=== PATIENT | female | born 1965 | race Caucasian/White ===

== ENCOUNTER 2016-07-22 18:27 | Emergency (ER) | payer BC ==
[~2016-07-22] VITALS: Ht 167.6 cm; Wt 70.3 kg
[2016-07-22] MEDS ORDERED: IV NORMAL SALINE 1,000ML 1,000 ML IV SCH (19:30)
[2016-07-22] MEDS ORDERED: ONDANSETRON PF 4 MG/2 ML VIAL. IV ONE (19:30)
[2016-07-22] MEDS ORDERED: methylPREDNISolone SOD SUCC PF 125 MG/2 ML VIAL. IV ONE (19:30)
[2016-07-22 19:45] LABS: BILIRUBIN,URINE NEG (NEG); CLARITY,URINE CLOUDY; COLOR,URINE ORANGE
[2016-07-22 19:46] LABS: AMORPHOUS SEDIMENT,UR PRESENT /HPF; BACTERIA,URINE 0 /HPF (0-FEW); RBC,URINE 0 /HPF (0-2); SQUAMOUS EPITHELIAL CELL,UR OCC /LPF
[2016-07-22 20:03] LABS: BASO # 0.1 x10^3/uL (0.0-0.2); BASO % 1 % (0-3); EOS % 0 % (0-3); HEMATOCRIT 37.9 % (36.0-47.0); HEMOGLOBIN 13.3 g/dL (12.0-15.5); LYMPH # 1.7 x10^3/uL (1.0-4.8); LYMPH % 18 % (24-48); MEAN CORPUSCULAR HEMOGLOBIN 33 pg (25-35); MEAN CORPUSCULAR HGB CONC 35 g/dL (31-37); MEAN CORPUSCULAR VOLUME 95 fL (79-100); MONO # 0.6 x10^3/uL (0.0-1.1); MONO % 6 % (0-9); NEUT # 7.1 x10^3uL (1.8-7.7); NEUT % 74 % (31-73); PLATELET COUNT 265 x10^3/uL (140-400); RED BLOOD COUNT 3.98 x10^6/uL (3.50-5.40); RED CELL DISTRIBUTION WIDTH 12.6 % (11.5-14.5); WHITE BLOOD COUNT 9.6 x10^3/uL (4.0-11.0)
[2016-07-22 20:18] LABS: AMPHETAMINE/METHAMPHETAMINE NEG (NEG); BARBITURATES NEG (NEG); BENZODIAZEPINES NEG (NEG); CANNABINOIDS NEG (NEG); COCAINE NEG (NEG); METHADONE NEG (NEG); OPIATES NEG (NEG); PHENCYCLIDINE NEG (NEG)
[2016-07-22 20:22] LABS: ALBUMIN 4.5 g/dL (3.4-5.0); ALBUMIN/GLOBULIN RATIO 1.3 (1.0-1.7); CALCIUM 9.8 mg/dL (8.5-10.1); GFR 23.3
--- NOTE | 2016-07-22 20:28 | RAD ---
PQRS STATEMENT: One or more of the following in the visualized dose reduction techniques were utilized for this study: 1. Automatic exposure control, 2. Adjustment of the mA and/or kV according to patient size, 3. Use of iterative reconstruction technique CT ABDOMEN/PELVIS Indication:CT abdomen/pelvis without contrast, allergy to iodine, pt has severe low abdominal pain, interstitial cystitis, hx of kidney stones and previous laser surgery on bladder 10 years ago for interstitial cystitis Technique: Multiple contiguous axial images were obtained through the abdomen and pelvis. Coronal and sagittal reformations were created. Findings: The kidneys are normal in size. There is no evidence for hydronephrosis. There is nonobstructive bilateral nephrolithiasis. The largest stone is on the left and measures 2 mm in size. There is a 0.6 cm fat density lesion in the interpolar region of the right kidney which probably represents a small angiomyolipoma. Ureters are not dilated. The urinary bladder is unremarkable. The heart size is normal. The lung bases are clear.Evaluation of the abdominal viscera is limited in the absence of IV contrast. The liver and spleen are normal in size. The gallbladder is nondistended. The pancreas, and adrenal glands are within normal limits. There is no abdominopelvic ascites. Abdominal aorta is normal in caliber. .The bowel loops are normal in caliber. The appendix is normal.No destructive osseus lesions are identified. Impression: Nonobstructive bilateral nephrolithiasis. No ascites or inflammatory mass. Normal appendix. 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 Electronically signed by: Danilo Maldonado MD (07/22/2016 8:24 PM)
[2016-07-22 20:43] LABS: CREATININE 2.2 mg/dL (0.6-1.0)
[2016-07-22 20:45] LABS: POTASSIUM 2.5 mmol/L (3.5-5.1)
[2016-07-22] MEDS ORDERED: POTASSIUM CHLORIDE 20 MEQ TABLET.ER. PO ONE (21:00)
--- NOTE | 2016-07-22 21:45 | PHYS DOC ---
General Chief Complaint: ABDOMINAL PAIN Stated Complaint: ABDOM PAINS Time Seen by MD: 18:45 Source: patient Exam Limitations: no limitations Problems: History of Present Illness Initial Comments Patient is a 51-year-old female who comes private auto complaining of lower abdominal pain. Patient states she has history of interstitial cystitis and that she has a recurrence. She is to follow with specialty urology at however has not been seen there for 10 years. She has an appointment scheduled for August 30 but thinks it is excessive she has to wait until that time. Patient has no primary care physician even though she does have health insurance, she says she works too much and has to take care of her kids and doesn't have time to go to doctors. She's been to urgent care and emergency departments recently for this discomfort, she says she is on her third round of antibiotics currently taking Bactrim and Pyridium. She says she hasn't been bothered with this discomfort in approximately 10 years but says it is identical to prior interstitial cystitis symptoms only worse. She says the pain is burning and stabbing moderate to severe worse with urination. Her urine is colored red due to Pyridium she is uncertain whether she 's had any blood, she denies fever chills sweats or myalgias she denies nausea vomiting and diarrhea. She has no bowel or vaginal symptoms. She does admit to decreased by mouth intake as she's been very frustrated with her pain complaints. Patient is tearful and requesting that I obtain cystoscopy in the ED and diagnosed her with interstitial cystitis. I advised her that cystoscopy will not take place in the emergency department but we can check labs urine and CT evaluation patient is agreeable. She refuses narcotic pain medications. Timing/Duration: constant (4-6 weeks) Severity: severe Modifying Factors: improves with other Associated Symptoms: other Allergies: Coded Allergies: iodine (Verified Allergy, Severe, Anaphylaxis, 07/22/16) shellfish derived (Verified Allergy, Severe, Anaphylaxis, 07/22/16) Penicillins (Verified Allergy, Intermediate, 07/22/16) aspirin (Verified Allergy, Intermediate, 07/22/16) Past Medical History Medical History: other (hypothyroidism, kidney stones, autoimmune idiopathic hives) Surgical History: noncontributory Social History Smoker: non-smoker Alcohol: occasionally Drugs: none Review of Systems Constitutional: denies chills, denies diaphoresis, denies fever, malaise Respiratory: denies cough, denies shortness of breath, denies wheezing Cardiovascular: denies chest pain, denies palpitations, denies syncope Gastrointestinal: abdominal pain, denies constipation, denies diarrhea, denies nausea, denies vomiting Genitourinary: see HPI Musculoskeletal: denies back pain, denies joint swelling, denies neck pain Psychiatric/Neurological: denies headache, denies numbness, denies paresthesia Physical Exam General Appearance: WD/WN, moderate distress Eyes: bilateral eye normal inspection, bilateral eye PERRL, bilateral eye EOMI Ear, Nose, Throat: hearing grossly normal, normal ENT inspection, normal pharynx (dry mucous membranes) Neck: non-tender, supple Respiratory: normal breath sounds, no respiratory distress Cardiovascular: normal peripheral pulses, regular rate, rhythm Gastrointestinal: soft (nondistended, lower abdominal tenderness to palpation without rebound or guard negative Joy no masses noted bowel sounds diminished ) Back: no CVA tenderness, no vertebral tenderness Extremities: non-tender, normal inspection 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 Interpreted by me Pertinent labs: Potassium 2.5, BUN 29, creatinine 2.2, creatine kinase 221, urine drug screen negative, urinalysis unreliable due to Pyridium PATIENT: XUAN LEES ACCOUNT: [id number] : 1965 LOCATION: ER AGE: 51 SEX: F EXAM STATUS: REG ER ORD. PHYSICIAN: LARRY ESPINOSA DO REASON: low abdominal pain, h/o interstitial cystitis,h/okidney stones PROCEDURE: CT ABDOMEN PELVIS WO CONTRAST PQRS STATEMENT: One or more of the following in the visualized dose reduction techniques were utilized for this study: 1. Automatic exposure control, 2. Adjustment of the mA and/or kV according to patient size, 3. Use of iterative reconstruction technique CT ABDOMEN/PELVIS Indication:CT abdomen/pelvis without contrast, allergy to iodine, pt has severe low abdominal pain, interstitial cystitis, hx of kidney stones and previous laser surgery on bladder 10 years ago for interstitial cystitis Technique: Multiple contiguous axial images were obtained through the abdomen and pelvis. Coronal and sagittal reformations were created. Findings: The kidneys are normal in size. There is no evidence for hydronephrosis. There is nonobstructive bilateral nephrolithiasis. The largest stone is on the left and measures 2 mm in size. There is a 0.6 cm fat density lesion in the interpolar region of the right kidney which probably represents a small angiomyolipoma. Ureters are not dilated. The urinary bladder is unremarkable. The heart size is normal. The lung bases are clear.Evaluation of the abdominal viscera is limited in the absence of IV contrast. The liver and spleen are normal in size. The gallbladder is nondistended. The pancreas, and adrenal glands are within normal limits. There is no abdominopelvic ascites. Abdominal aorta is normal in caliber. .The bowel loops are normal in caliber. The appendix is normal.No destructive osseus lesions are identified. Impression: Nonobstructive bilateral nephrolithiasis. No ascites or inflammatory mass. Normal appendix. 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 Electronically signed by: Iva Maldonado MD (07/22/2016 8:24 PM) DICTATED AND SIGNED BY: IVA MALDONADO MD DATE: 07/22/162016 CC: LARRY ESPINOSA DO; MADDIE DURAN ~ Patient received a liter normal saline IV while her studies were pending. She reports that her symptoms have nearly resolved with IV fluids and Solu-Medrol IV. I discussed her hypokalemia and renal insufficiency and discussed hospital admission for further evaluation and treatment. After comprehensive discussion and answering patient's questions she requests trial of medications at home and agrees to come back if symptoms return or worsen. I strongly encouraged her to establish with a primary care physician for ongoing health maintenance and to manage her outpatient referrals. Departure Time of Disposition: 21:48 Disposition: 01 HOME, SELF-CARE Diagnosis: hypokalemia, hypovolemia, interstitial cystitis Condition: IMPROVED Patient Instructions: Dehydration, Adult, [id number], Hypokalemia-Brief, Interstitial Cystitis Additional Instructions: Activity as tolerated. Aggressive hydration with Gatorade or water. [id number] Benadryl and Pepcid while taking prednisone. Prescription: Klor-Con 40 mg quantity 10, prednisone 20 mg quantity 10, Centralia 5 mg quantity 10 Take Centralia with food to avoid nausea and vomiting. Increase fluids and take over -the-counter stool softeners while taking Centralia to avoid constipation. You'll need to follow-up with a primary care physician next week to recheck your potassium and kidney function. Call Sunday to schedule next available appointment and see if you can expedite urology evaluation at . Return to the ED with new or changing symptoms LARRY ESPINOSA DO Jul 22, 2016 21:45
[2016-07-22 22:00] VITALS: BP 124/76
--- NOTE | 2016-07-22 22:05 | EKG ---
[address] [address] Test Date: 2016-07-22 Test Time: 21:16:49 Pat Name: XUAN LEES Department: Room: Gender: F Residential Nurse: BETH : 1965 Requested By: LARRY ESPINOSA Order Number: [id number] Reading MD: Shay Sotelo Measurements Intervals [place] Rate: 70 P: 60 [place]: 168 QRS: 24 QRSD: 90 T: 20 QT: 482 QTc: 524 Interpretive Statements SINUS RHYTHM NON-SPECIFIC ST/T CHANGES Electronically Signed On 07-25-2016 8:42:29 CDT by Shay Sotelo
[2016-07-22] MEDS ORDERED: predniSONE 20 MG TABLET PO ONE (22:30)
[2016-07-27] MEDS ORDERED: ASCO500T2 PO (13:17)
[2016-07-27] MEDS ORDERED: POTA10CA PO (13:17)
== END 2016-07-22 22:15 | disposition home or self-care (01) ==
LOC: ER 18:27
DX: N30.10 Interstitial cystitis (chronic) without hematuria (principal); E86.1 Hypovolemia; E87.6 Hypokalemia; E03.9 Hypothyroidism, unspecified; Z87.442 Personal history of urinary calculi; Z88.6 Allergy status to analgesic agent; Z91.041 Radiographic dye allergy status; Z88.0 Allergy status to penicillin; Z91.013 Allergy to seafood
CPT/HCPCS: 36415; 74176; 80053; 80305; 80320; 81001; 82550; 83690; 85027; 87086; 93005; 96361; 96374; 96375; 99285; J2405; J2930; J7512; G0481; J7030

== ENCOUNTER 2016-07-26 13:31 | Inpatient (IN) | payer BC ==
[~2016-07-26] VITALS: Ht 162.6 cm; Wt 75.7 kg
--- NOTE | 2016-07-26 14:26 | EKG ---
[address] [address] Test Date: 2016-07-26 Test Time: 13:54:55 Pat Name: XUAN LEES Department: Room: Gender: F Director Of Security: SHANE : 1965 Requested By: DEB NAVARRO Order Number: [id number] Reading MD: Shay Sotelo Measurements Intervals [place] Rate: 73 P: 37 [place]: 148 QRS: 16 QRSD: 86 T: 15 QT: 404 QTc: 449 Interpretive Statements SINUS RHYTHM ATRIAL PREMATURE COMPLEX(ES) Electronically Signed On 07-27-2016 11:09:59 CDT by Shay Sotelo
[2016-07-26] MEDS ORDERED: methylPREDNISolone SOD SUCC PF 125 MG/2 ML VIAL. IV ONE (14:30)
[2016-07-26] MEDS ORDERED: diphenhydrAMINE 50 MG/ML VIAL IVP ONE (14:30)
[2016-07-26 14:43] LABS: BASO % 0 % (0-3); EOS % 0 % (0-3); HEMATOCRIT 35.7 % (36.0-47.0); HEMOGLOBIN 12.4 g/dL (12.0-15.5); LYMPH # 1.4 x10^3/uL (1.0-4.8); LYMPH % 10 % (24-48); MEAN CORPUSCULAR HEMOGLOBIN 33 pg (25-35); MEAN CORPUSCULAR HGB CONC 35 g/dL (31-37); MEAN CORPUSCULAR VOLUME 96 fL (79-100); MONO # 0.3 x10^3/uL (0.0-1.1); MONO % 3 % (0-9); NEUT # 11.3 x10^3uL (1.8-7.7); NEUT % 87 % (31-73); PLATELET COUNT 322 x10^3/uL (140-400); RED BLOOD COUNT 3.71 x10^6/uL (3.50-5.40); RED CELL DISTRIBUTION WIDTH 12.8 % (11.5-14.5)
--- NOTE | 2016-07-26 14:47 | ED.ADGEN ---
Past History Past Medical History: Hypothyroid, Other Past Surgical History: Other Alcohol Use: Occasionally Drug Use: None Adult General Chief Complaint Chief Complaint Low oxygen level HPI HPI Patient is a 51 year old female who presents with low oxygen levels discovered at the family [facility] office while on a routine checkup for interstitial cystitis she's been recently taking Pyridium. They noted that her O2 sats were around 86% on room air. Patient currently denies any chest pain or dyspnea but does report fatigue. Also had a left calf pain and cramping earlier this morning that's resolved. No prior history of DVTs or pulmonary malaise. She does take xolair monthly for her interstitial cystitis. Review of Systems Review of Systems Constitutional: Denies fever or chills [] Eyes: Denies change in visual acuity, redness, or eye pain [] HENT: Denies nasal congestion or sore throat [] Respiratory: Denies cough or shortness of breath [] Cardiovascular: No additional information not addressed in HPI [] GI: Denies abdominal pain, nausea, vomiting, bloody stools or diarrhea [] : Denies dysuria or hematuria [] Musculoskeletal: Denies back pain or joint pain [] Integument: Denies rash or skin lesions [] Neurologic: Denies headache, focal weakness or sensory changes [] Endocrine: Denies polyuria or polydipsia [] Current Medications Current Medications Current Medications Medications (Trade) Dose Ordered Sig/Wan Start Time Stop Time Status Last Admin Dose Admin Diphenhydramine HCl (Benadryl) 50 mg 1X ONCE 07/26/16 14:30 07/26/16 14:31 DC 07/26/16 14:27 50 MG Iohexol (Omnipaque 300 Mg/ml) 75 ml 1X ONCE 07/26/16 15:00 07/26/16 15:01 DC 07/26/16 15:17 75 ML Methylprednisolone Sodium Succinate (SOLU-Medrol 125MG VIAL) 125 mg 1X ONCE 07/26/16 14:30 07/26/16 14:31 DC 07/26/16 14:27 125 MG Allergies Allergies Allergies Coded Allergies Type Severity Reaction Last Updated Verified shellfish derived Allergy Severe Anaphylaxis 07/22/16 Yes Penicillins Allergy Intermediate 07/22/16 Yes aspirin Allergy Intermediate 07/22/16 Yes Physical Exam Physical Exam Constitutional: Well developed, well nourished, no acute distress, non-toxic appearance. [] HENT: Normocephalic, atraumatic, bilateral external ears normal, oropharynx moist, no oral exudates, nose normal. [] Eyes: PERRLA, EOMI, conjunctiva normal, no discharge. [] Neck: Normal range of motion, no tenderness, supple, no stridor. [] Cardiovascular:Heart rate regular rhythm, no murmur [] Lungs & Thorax: Bilateral breath sounds clear to auscultation [] Abdomen: Bowel sounds normal, soft, no tenderness, no masses, no pulsatile masses. [] Skin: Warm, dry, no erythema, no rash. [] Back: No tenderness, no CVA tenderness. [] Extremities: No tenderness, no cyanosis, no clubbing, ROM intact, no edema. [] Neurologic: Alert and oriented X 3, normal motor function, normal sensory function, no focal deficits noted. [] Psychologic: Affect normal, judgement normal, mood normal. [] Current Patient Data Vital Signs Vital Signs Date Time Temp Pulse Resp B/P (MAP) Pulse Ox O2 Delivery O2 Flow Rate FiO2 07/26/16 13:31 98.7 76 20 87 Room Air Lab Results Laboratory Tests Test 07/26/16 14:12 07/26/16 14:20 White Blood Count 13.0 x10^3/uL (4.0-11.0) H Red Blood Count 3.71 x10^6/uL (3.50-5.40) Hemoglobin 12.4 g/dL (12.0-15.5) Hematocrit 35.7 % (36.0-47.0) L Mean Corpuscular Volume 96 fL (79-100) Mean Corpuscular Hemoglobin 33 pg (25-35) Mean Corpuscular Hemoglobin Concent 35 g/dL (31-37) Red Cell Distribution Width 12.8 % (11.5-14.5) Platelet Count 322 x10^3/uL (140-400) Neutrophils (%) (Auto) 87 % (31-73) H Lymphocytes (%) (Auto) 10 % (24-48) L Monocytes (%) (Auto) 3 % (0-9) Eosinophils (%) (Auto) 0 % (0-3) Basophils (%) (Auto) 0 % (0-3) Neutrophils # (Auto) 11.3 x10^3uL (1.8-7.7) H Lymphocytes # (Auto) 1.4 x10^3/uL (1.0-4.8) Monocytes # (Auto) 0.3 x10^3/uL (0.0-1.1) Eosinophils # (Auto) 0.0 x10^3/uL (0.0-0.7) Basophils # (Auto) 0.0 x10^3/uL (0.0-0.2) Sodium Level 137 mmol/L (136-145) Potassium Level 3.1 mmol/L (3.5-5.1) L Chloride Level 99 mmol/L (98-107) Carbon Dioxide Level 30 mmol/L (21-32) Anion Gap 8 (6-14) Blood Urea Nitrogen 34 mg/dL (7-20) H Creatinine 1.3 mg/dL (0.6-1.0) H Estimated GFR (Cockcroft-Gault) 42.8 BUN/Creatinine Ratio 26 (6-20) H Glucose Level 137 mg/dL (70-99) H Calcium Level 9.1 mg/dL (8.5-10.1) Total Bilirubin 1.9 mg/dL (0.2-1.0) H Aspartate Amino Transferase (AST) 31 U/L (15-37) Alanine Aminotransferase (ALT) 34 U/L (14-59) Alkaline Phosphatase 93 U/L (46-116) Troponin I Quantitative < 0.017 ng/mL (0-0.055) Total Protein 7.7 g/dL (6.4-8.2) Albumin 4.7 g/dL (3.4-5.0) Albumin/Globulin Ratio 1.6 (1.0-1.7) Blood pH 7.50 (7.35-7.45) H Blood Gas PCO2 34 mmHg (35-45) L Blood Gas PO2 68 mmHg (80-100) L Blood Gas HCO3 26 mmol/L (22-26) Arterial Bld O2 Saturation (Calc) 95 % (92-99) Carbon Monoxide, Quantitative 3.7 FiO2 21 % EKG EKG EKG sinus rhythm rate of 73 no STEMI QTC normal no heart strain there is Q3 slight T3 no S1 [] interpretation at 1354 Radiology/Procedures Radiology/Procedures CTA chest [negative for pulmonary embolism] Course & Med Decision Making Course & Med Decision Making Pertinent Labs and Imaging studies reviewed. (See chart for details). Patient is in no distress not tachycardic but noted to be hypoxic. chest x-ray done as an outpatient is reportedly normal ABG was obtained which showed hypoxia relatively patient was on 4 L by nasal cannula. carboxyhemoglobin and methemoglobin are pending and are send outs. Patient has a shellfish allergy but no prior history of adverse reactions to IV contrast this was discussed in detail with the patient and the patient's father who agreed and with the radiologist. Regardless we will pretreat just as an extra precaution although was not absolutely necessary with Solu-Medrol and Benadryl. Benefits outweigh the risks. CT of the chest showed no evidence of pulmonary embolism. Carboxyhemoglobin was 3% met hemoglobin was 9.4 which is grossly abnormal. Discussed case with poison control they recommend a repeat CBC CMP and methemoglobin level checked at 9 PM tonight and in the morning. They recommend regular dose of vitamin C and continuation of oxygen and stopping of Pyridium. I discussed the diagnosis and management plan with Dr. Gonzalez agrees to accept that and I have discussed in detail with the patient as well. [] Final Impression Final Impression Hypoxia, methemoglobinemia [] Problems: Dragon Disclaimer Dragon Disclaimer This electronic medical record was generated, in whole or in part, using a voice recognition dictation system. DEB NAVARRO MD Jul 26, 2016 14:47
[2016-07-26 14:54] LABS: ALBUMIN 4.7 g/dL (3.4-5.0); ALBUMIN/GLOBULIN RATIO 1.6 (1.0-1.7); CALCIUM 9.1 mg/dL (8.5-10.1); CREATININE 1.3 mg/dL (0.6-1.0); GFR 42.8; POTASSIUM 3.1 mmol/L (3.5-5.1); TOTAL BILIRUBIN 1.9 mg/dL (0.2-1.0); TOTAL PROTEIN 7.7 g/dL (6.4-8.2)
[2016-07-26] MEDS ORDERED: IOHEXOL 300 MG/ML 75 ML VIAL. IV ONE (15:00)
[2016-07-26 15:04] LABS: BGAS PH 7.5 (7.35-7.45)
--- NOTE | 2016-07-26 15:39 | RAD ---
CTA of the chest with contrast (pulmonary embolism protocol) 07/26/2016 Clinical History: Hypoxia.. Technique: After the intravenous administration of 75 mL of Isovue-370, contiguous, 2 mm axial sections were obtained through the chest. 3-D MIP coronal and sagittal reconstructed images were obtained. One or more of the following individualized dose reduction techniques were utilized for this study: 1. Automated exposure control. 2. Adjustment of the mA and/or kV according to patient size. 3. Use of iterative reconstruction technique. Findings: No filling defects are seen within the major branches of either pulmonary artery. There is no CT evidence of pulmonary embolism. The heart is borderline enlarged. The thoracic aorta is mildly tortuous but tapers normally. Dependent subsegmental atelectasis seen involving both lungs. No area of consolidation, pneumothorax or pleural effusion is noted. Impression: There is no CT evidence of pulmonary embolism.
[2016-07-26] MEDS ORDERED: ONDANSETRON PF 4 MG/2 ML VIAL. IV PRN (17:45)
[2016-07-26] MEDS ORDERED: CONTRAST GIVEN MC PRN (18:00)
[2016-07-26] MEDS ORDERED: IV NORMAL SALINE 1,000ML 1,000 ML IV PRN (18:00)
[2016-07-26 18:41] LABS: BILIRUBIN,URINE NEG (NEG); CLARITY,URINE CLEAR; COLOR,URINE AMBER; GLUCOSE,URINE 100 mg/dL (NEG)
[2016-07-26 18:47] LABS: BACTERIA,URINE 0 /HPF (0-FEW); NITRITE,URINE POS (NEG); RBC,URINE RARE /HPF (0-2); SQUAMOUS EPITHELIAL CELL,UR FEW /LPF; UROBILINOGEN,URINE 0.2 mg/dL (0.2 mg/dL)
[2016-07-26] MEDS ORDERED: ENOXAPARIN 40 MG/0.4 ML DISP.SYRIN. SQ SCH (19:00)
[2016-07-26] MEDS: ASCORBIC ACID 500 MG TABLET PO SCH (20:56)
[2016-07-26 21:16] LABS: BASO % 0 % (0-3); EOS % 0 % (0-3); HEMATOCRIT 36.4 % (36.0-47.0); HEMOGLOBIN 12.6 g/dL (12.0-15.5); LYMPH # 0.8 x10^3/uL (1.0-4.8); LYMPH % 8 % (24-48); MEAN CORPUSCULAR HEMOGLOBIN 33 pg (25-35); MEAN CORPUSCULAR HGB CONC 35 g/dL (31-37); MEAN CORPUSCULAR VOLUME 96 fL (79-100); MONO # 0.1 x10^3/uL (0.0-1.1); MONO % 1 % (0-9); NEUT % 90 % (31-73); PLATELET COUNT 331 x10^3/uL (140-400); RED BLOOD COUNT 3.79 x10^6/uL (3.50-5.40); RED CELL DISTRIBUTION WIDTH 12.9 % (11.5-14.5)
[2016-07-26 21:24] LABS: BGAS PH 7.46 (7.35-7.45)
[2016-07-26 21:36] LABS: ALBUMIN 4.3 g/dL (3.4-5.0); ALBUMIN/GLOBULIN RATIO 1.3 (1.0-1.7); CALCIUM 8.7 mg/dL (8.5-10.1); CREATININE 1.2 mg/dL (0.6-1.0); TOTAL PROTEIN 7.7 g/dL (6.4-8.2)
[2016-07-26 21:37] LABS: POTASSIUM 2.9 mmol/L (3.5-5.1)
[2016-07-26] MEDS ORDERED: POTASSIUM CHLORIDE 20 MEQ TABLET.ER. PO ONE (21:55)
[2016-07-26] MEDS: POTASSIUM CL 20MEQ IN 0.9%NACL 1,000 ML IV SCH (22:03)
[2016-07-26 23:35] VITALS: BP 103/62
[2016-07-27 05:00] VITALS: BP 126/70
[2016-07-27] MEDS ORDERED: POTASSIUM CHLORIDE 20 MEQ TABLET.ER. PO ONE ×3 (06:00→12:00)
[2016-07-27 06:28] LABS: BASO % 0 % (0-3); EOS % 0 % (0-3); HEMATOCRIT 34.1 % (36.0-47.0); HEMOGLOBIN 11.8 g/dL (12.0-15.5); LYMPH % 9 % (24-48); MEAN CORPUSCULAR HEMOGLOBIN 34 pg (25-35); MEAN CORPUSCULAR HGB CONC 35 g/dL (31-37); MEAN CORPUSCULAR VOLUME 97 fL (79-100); MONO # 0.3 x10^3/uL (0.0-1.1); MONO % 3 % (0-9); NEUT # 9.8 x10^3uL (1.8-7.7); NEUT % 88 % (31-73); PLATELET COUNT 325 x10^3/uL (140-400); RED BLOOD COUNT 3.52 x10^6/uL (3.50-5.40); RED CELL DISTRIBUTION WIDTH 13.5 % (11.5-14.5); WHITE BLOOD COUNT 11.1 x10^3/uL (4.0-11.0)
[2016-07-27 06:42] LABS: ALBUMIN/GLOBULIN RATIO 1.2 (1.0-1.7); CALCIUM 8.4 mg/dL (8.5-10.1); CREATININE 1.1 mg/dL (0.6-1.0); POTASSIUM 3.1 mmol/L (3.5-5.1); TOTAL BILIRUBIN 1.6 mg/dL (0.2-1.0); TOTAL PROTEIN 7.4 g/dL (6.4-8.2)
--- NOTE | 2016-07-27 06:43 | ACF ---
Admission Criteria Forms TELEMETRY CARE Telemetry Admission Guidelines (Place 'X' for any and all applicable criteria): Admission to telemetry [A] may be indicated for ANY ONE of the following(1)(2)(3 )(4)(5): [X]I. Cardiac disease, including ANY ONE of the following (9)(10)(11)(12)(13 ): [ ]a) Postacute SD [ ]b) Low-risk patients with ST-segment elevation SD who have undergone successful percutaneous coronary intervention [ ]c) Unstable angina [ ]d) Suspected SD (until it is ruled out) [ ]e) Post cardiac surgery (first 48 to 72 hours unless complications occur) [X]f) Acute arrhythmias (including significant tachycardia or bradycardia) [B] [ ]g) Firing of an implantable cardioverter defibrillator [C] [ ]h) Suspected pacemaker or implantable cardioverter defibrillator malfunction (10) [ ]i) New administration or adjustment of an antiarrhythmic drug [D ] [ ]j) Child admitted for acute congestive heart failure [ ]j) Long QT syndrome [ ]k) Advanced heart block (eg, second-degree Mobitz type II, third- degree heart block) [ ]l) Acute myocarditis or pericarditis [ ]m) Short-term (ambulatory or inpatient) monitoring after a cardiac procedure as indicated by ANY ONE of the following [E]: [ ]i) Electrophysiologic studies [ ]ii) Percutaneous coronary intervention with stent placement [ ]iii) Pacemaker placement with cardiac conduction defect [ ]iv) Implantable cardiac defibrillator placement [ ]II. Drug overdose or poisoning with substance that causes arrhythmias or QT prolongation (eg, phenothiazines, sympathomimetic agents, cyclic antidepressants, digitalis, antiarrhythmic drugs)(15) [ ]III. Short-term (ambulatory or inpatient) monitoring after therapeutic or diagnostic procedure requiring conscious sedation or anesthesia (eg, endoscopy, elective cardioversion) [ ]IV. Acute cerebrovascular even[F](18) [ ]V. Massive blood transfusion (eg, at least 10 units of packed red blood cells in 24 hours) [ ]. Variceal bleeding after endoscopy, sclerotherapy, or IV vasopressin [ ]VII. Uncorrected electrolyte abnormalities associated with an increased risk of dangerous arrhythmia [G]; examples include [ ]a) Hyperkalemia with attributable ECG changes [ ]b) Potassium greater than 6.5 mmol/L (mEq/L) in a patient without history of chronic renal disease [ ]c) Prolonged QT attributed to hypokalemia, hypomagnesemia, or hypocalcemia [ ]VIII.Unexplained syncope or other neurologic event suspected of being due to arrhythmia due to a finding that increases risk; examples include(19)(20)(21): [ ]a) High-risk ECG findings (eg, bifascicular block, bradycardia, abnormal QT interval, ventricular pre- excitation) [ ]b) History of previous syncope due to arrhythmia [ ]c) Abnormal ventricular function (eg, reduced ejection fraction ) [ ]d) Exertional or supine syncope [ ]e) Concerning syncope characteristics (eg, sudden loss of consciousness without prodrome) [ ]f) Family history of sudden [ ]g) Use of arrhythmogenic medication [ ]h) Suspected cardiac ischemia [ ]i) Known channelopathy (eg, long QT syndrome, Brugada syndrome, or catecholaminergic paroxysmal ventricular tachycardia) [ ]j) Known structural heart disease (eg, hypertrophic cardiomyopathy , severe valvular disease) [ ]k) Palpitations preceding syncope The original [facility] content created by [employer] has been revised. The portions of the content which have been revised are identified through the use of italic text or in bold, and [employer] has neither reviewed nor approved the modified material. All other unmodified content is copyright [employer]. Please see references footnoted in the original [facility] edition 2016 Admission Criteria Met?: Yes GENEVIEVE MOREJON Jul 27, 2016 06:43
[2016-07-27] MEDS: ASCORBIC ACID 500 MG TABLET PO SCH (08:56)
[2016-07-27] MEDS: POTASSIUM CL 20MEQ IN 0.9%NACL 1,000 ML IV SCH (08:57)
[2016-07-27 10:58] LABS: BGAS PH 7.48 (7.35-7.45)
[2016-07-27 11:53] VITALS: BP 111/73
[2016-07-27] MEDS ORDERED: ASCO500T2 PO (13:17)
[2016-07-27] MEDS ORDERED: POTA10CA PO (13:17)
[2016-07-27 14:31] LABS: HEMATOCRIT 33.1 % (36.0-47.0); HEMOGLOBIN 11.5 g/dL (12.0-15.5); RED BLOOD COUNT 3.4 x10^6/uL (3.50-5.40); RED CELL DISTRIBUTION WIDTH 13.5 % (11.5-14.5); WHITE BLOOD COUNT 15.2 x10^3/uL (4.0-11.0)
[2016-07-27 14:42] LABS: CALCIUM 8.6 mg/dL (8.5-10.1); CREATININE 1.1 mg/dL (0.6-1.0)
[2016-07-27 16:06] VITALS: BP 113/74
[2016-07-27 16:20] LABS: BGAS PH 7.47 (7.35-7.45)
[2016-07-27] MEDS ORDERED: POTASSIUM CHLORIDE 10 MEQ CAPSULE.ER. PO SCH (17:00)
== END 2016-07-27 18:16 | disposition home or self-care (01) | DRG 690 ==
LOC: ER 13:31 → 1 SOUTH 17:34 → OBSVTOIN 07-27 08:53
PROVIDERS: ADMIT Family Medicine; ATTEND Family Medicine
DX: N30.10 Interstitial cystitis (chronic) without hematuria (principal); E03.9 Hypothyroidism, unspecified; R09.02 Hypoxemia
CPT/HCPCS: 36415; 36600; 71275; 80048; 80053; 81001; 82375; 82803; 84484; 85027; 85379; 87086; 93005; 96374; 96375; G0378; G0379; J1200; J1650; J2930; Q9967; 99285-25; J7030

== ENCOUNTER 2017-05-08 17:51 | Emergency (ER) | payer BC ==
[~2017-05-08] VITALS: Ht 162.6 cm; Wt 81.7 kg
[~2017-05-08 17:51] MED LIST changes: -HYDR-79 PO; -ONDA8TAB12 PO
--- NOTE | 2017-05-08 17:54 | ED.ADGEN ---
Past History Past Medical History: Hypothyroid, Migraines, Other Past Surgical History: Other Alcohol Use: Occasionally Drug Use: None Adult General Chief Complaint Chief Complaint " I was at Dr. Brown office earlier.. the did a CT .. and gave me some toradol... but this Lt. flank pain is no better... ".." I ve been hurting for 4 hrs... I ve had kidney stones before... 2 x 's... It shayla like that kind of pain..." HPI HPI Patient is a 51 year old female who presents with above hx and complaints of Lt renal colic like pain that radiates to pelvic area for last 4 hrs.. Pt. rates pain a 9 to 11/21. Nothing she has gotten for pain has helped. Pt. denies trauma, problems with her bowel and or specific hx of dysuria. Pt. denies recent travel or specific ill contacts. Pt. denies immunosuppression. Non- contrast CT earlier showed non-obstructing stone on Rt. No appendicitis. No acute surgical pathology Review of Systems Review of Systems Constitutional: Denies fever or chills [] Eyes: Denies change in visual acuity, redness, or eye pain [] HENT: Denies nasal congestion or sore throat [] Respiratory: Denies cough or shortness of breath [] Cardiovascular: No additional information not addressed in HPI [] GI: Denies abdominal pain, nausea, vomiting, bloody stools or diarrhea [] : Denies dysuria or hematuria [] Musculoskeletal: Denies back pain or joint pain [] Integument: Denies rash or skin lesions [] Neurologic: Denies headache, focal weakness or sensory changes [] Endocrine: Denies polyuria or polydipsia [] All other systems were reviewed and found to be within normal limits, except as documented in this note. Family History Family History Noncontributory Current Medications Current Medications Current Medications Medications (Trade) Dose Ordered Sig/Wan Start Time Stop Time Status Last Admin Dose Admin Lactated Ringer's 1,000 ml @ 1,000 mls/hr Q1H 05/08/17 18:16 05/08/17 19:15 DC 05/08/17 18:43 1,000 MLS/HR Magnesium Citrate (Citroma) 296 ml 1X ONCE 05/08/17 20:00 05/08/17 20:01 DC Allergies Allergies Allergies Coded Allergies Type Severity Reaction Last Updated Verified shellfish derived Allergy Severe Anaphylaxis 05/08/17 Yes Penicillins Allergy Intermediate 05/08/17 Yes aspirin Allergy Intermediate 05/08/17 Yes phenazopyridine Allergy Mild Unknown 05/08/17 Yes Physical Exam Physical Exam Constitutional: Well developed, well nourished, no acute distress, non-toxic appearance. [] HENT: Normocephalic, atraumatic, bilateral external ears normal, oropharynx moist, no oral exudates, nose normal. [] Eyes: PERRLA, EOMI, conjunctiva normal, no discharge. [] Neck: Normal range of motion, no tenderness, supple, no stridor. [] Cardiovascular:Heart rate regular rhythm, no murmur [] Lungs & Thorax: Bilateral breath sounds clear to auscultation [] Abdomen: Bowel sounds normal, soft, left flank tenderness, no masses, no pulsatile masses. [] Obese. Distended. Skin: Warm, dry, no erythema, no rash. [] Back: No tenderness, no CVA tenderness. [] Extremities: No tenderness, no cyanosis, no clubbing, ROM intact, no edema. [] No psoas or heeltap Neurologic: Alert and oriented X 3, normal motor function, normal sensory function, no focal deficits noted. [] Psychologic: Affect anxious, judgement normal, mood normal. [] Current Patient Data Vital Signs Vital Signs Date Time Temp Pulse Resp B/P (MAP) Pulse Ox O2 Delivery O2 Flow Rate FiO2 05/08/17 20:15 66 18 125/73 (90) 99 Room Air 05/08/17 17:51 97.9 Lab Results Laboratory Tests Test 05/08/17 18:38 White Blood Count 6.0 x10^3/uL (4.0-11.0) Red Blood Count 4.04 x10^6/uL (3.50-5.40) Hemoglobin 13.4 g/dL (12.0-15.5) Hematocrit 38.8 % (36.0-47.0) Mean Corpuscular Volume 96 fL (79-100) Mean Corpuscular Hemoglobin 33 pg (25-35) Mean Corpuscular Hemoglobin Concent 35 g/dL (31-37) Red Cell Distribution Width 13.1 % (11.5-14.5) Platelet Count 236 x10^3/uL (140-400) Neutrophils (%) (Auto) 60 % (31-73) Lymphocytes (%) (Auto) 29 % (24-48) Monocytes (%) (Auto) 8 % (0-9) Eosinophils (%) (Auto) 3 % (0-3) Basophils (%) (Auto) 0 % (0-3) Neutrophils # (Auto) 3.6 x10^3uL (1.8-7.7) Lymphocytes # (Auto) 1.8 x10^3/uL (1.0-4.8) Monocytes # (Auto) 0.5 x10^3/uL (0.0-1.1) Eosinophils # (Auto) 0.2 x10^3/uL (0.0-0.7) Basophils # (Auto) 0.0 x10^3/uL (0.0-0.2) Urine Collection Type Unknown Urine Color Yellow Urine Clarity Cloudy Urine pH 7.0 Urine Specific [place] 1.020 Urine Protein Neg (NEG-TRACE) Urine Glucose (UA) Neg mg/dL (NEG) Urine Ketones (Stick) Neg mg/dL (NEG) Urine Blood Neg (NEG) Urine Nitrite Neg (NEG) Urine Bilirubin Neg (NEG) Urine Urobilinogen Dipstick 0.2 mg/dL (0.2 mg/dL) Urine Leukocyte Esterase Neg (NEG) Urine RBC 0 /HPF (0-2) Urine WBC Occ /HPF (0-4) Urine Squamous Epithelial Cells Occ /LPF Urine Amorphous Sediment Present /HPF Urine Bacteria Few /HPF (0-FEW) Sodium Level 144 mmol/L (136-145) Potassium Level 3.6 mmol/L (3.5-5.1) Chloride Level 108 mmol/L (98-107) H Carbon Dioxide Level 27 mmol/L (21-32) Anion Gap 9 (6-14) Blood Urea Nitrogen 16 mg/dL (7-20) Creatinine 0.9 mg/dL (0.6-1.0) Estimated GFR (Cockcroft-Gault) 65.5 Glucose Level 109 mg/dL (70-99) H Calcium Level 9.0 mg/dL (8.5-10.1) Total Bilirubin 0.2 mg/dL (0.2-1.0) Direct Bilirubin 0.1 mg/dL (0.0-0.2) Aspartate Amino Transferase (AST) 24 U/L (15-37) Alanine Aminotransferase (ALT) 30 U/L (14-59) Alkaline Phosphatase 104 U/L (46-116) Total Protein 6.8 g/dL (6.4-8.2) Albumin 3.7 g/dL (3.4-5.0) Amylase Level 73 U/L (25-115) Lipase 214 U/L (73-393) EKG EKG [] Radiology/Procedures Radiology/Procedures Review earlier CT- No acute surgical pathology. Increased stool. [] Course & Med Decision Making Course & Med Decision Making Pertinent Labs and Imaging studies reviewed. (See chart for details). Stay on a clear fluid diet only for 2 days. No milk products no solids. Must allow bowel rest clear fluids only take Tylenol and ibuprofen for pain. May take Vicoprofen for marked pain. Have reexam if no improvement. Must stay on a clear fluid diet and have passage of stool so inadequate CT can be performed if continued pain. [] Final Impression Final Impression 1. Lt. flank pain[] 2. Constipation Problems: Dragon Disclaimer Dragon Disclaimer This electronic medical record was generated, in whole or in part, using a voice recognition dictation system. JUNIOR CURRAN MD May 08, 2017 17:54
[2017-05-08] MEDS ORDERED: ONDA8TAB12 PO (18:15)
[2017-05-08] MEDS ORDERED: HYDR-79 PO (18:15)
[2017-05-08] MEDS ORDERED: IV RINGERS SOLUTION,LACTATED 1,000 ML IV SCH (18:16)
[2017-05-08 19:05] LABS: BASO % 0 % (0-3); EOS # 0.2 x10^3/uL (0.0-0.7); EOS % 3 % (0-3); HEMATOCRIT 38.8 % (36.0-47.0); HEMOGLOBIN 13.4 g/dL (12.0-15.5); LYMPH # 1.8 x10^3/uL (1.0-4.8); LYMPH % 29 % (24-48); MEAN CORPUSCULAR HEMOGLOBIN 33 pg (25-35); MEAN CORPUSCULAR HGB CONC 35 g/dL (31-37); MEAN CORPUSCULAR VOLUME 96 fL (79-100); MONO # 0.5 x10^3/uL (0.0-1.1); MONO % 8 % (0-9); NEUT # 3.6 x10^3uL (1.8-7.7); NEUT % 60 % (31-73); PLATELET COUNT 236 x10^3/uL (140-400); RED BLOOD COUNT 4.04 x10^6/uL (3.50-5.40); RED CELL DISTRIBUTION WIDTH 13.1 % (11.5-14.5)
[2017-05-08 19:16] LABS: ALBUMIN 3.7 g/dL (3.4-5.0); CREATININE 0.9 mg/dL (0.6-1.0); DIRECT BILIRUBIN 0.1 mg/dL (0.0-0.2); GFR 65.5; POTASSIUM 3.6 mmol/L (3.5-5.1); TOTAL BILIRUBIN 0.2 mg/dL (0.2-1.0); TOTAL PROTEIN 6.8 g/dL (6.4-8.2)
[2017-05-08 19:29] LABS: AMORPHOUS SEDIMENT,UR PRESENT /HPF; BACTERIA,URINE FEW /HPF (0-FEW); BILIRUBIN,URINE NEG (NEG); CLARITY,URINE CLOUDY; COLOR,URINE YELLOW; GLUCOSE,URINE NEG (NEG); NITRITE,URINE NEG (NEG); RBC,URINE 0 /HPF (0-2); SQUAMOUS EPITHELIAL CELL,UR OCC /LPF; UROBILINOGEN,URINE 0.2 mg/dL (0.2 mg/dL); WBC,URINE OCC /HPF (0-4)
[2017-05-08] MEDS ORDERED: MAGNESIUM CITRATE 296 ML SOLUTION. PO ONE (20:00)
[2017-05-08 20:15] VITALS: BP 125/73
== END 2017-05-08 20:26 | disposition home or self-care (01) ==
LOC: ER 17:51
DX: K59.00 Constipation, unspecified (principal); E03.9 Hypothyroidism, unspecified; G43.909 Migraine, unspecified, not intractable, without status migrainosus; Z88.8 Allergy status to other drugs, medicaments and biological substances; Z88.6 Allergy status to analgesic agent; Z88.0 Allergy status to penicillin; Z91.013 Allergy to seafood
CPT/HCPCS: 36415; 80048; 80076; 81001; 82150; 83690; 85025; 96360; 96361; 99285; J7120

== ENCOUNTER → 2017-05-08 | Outpatient (CLI) | payer BC ==
[~2017-05-08] MED LIST: ASCO500T2 PO; HYDR-79 PO; ONDA8TAB12 PO; POTA10CA PO
--- NOTE | 2017-05-08 14:33 | RAD ---
Indication: Severe right flank pain for 2 hours. History of kidney stone. Technique: CT abdomen and pelvis without IV contrast with multiplanar reformats. Comparison: Previous study from 07/26/2016 Findings: Limited evaluation of solid abdominal organs due to lack of IV contrast. Heart is normal in size. Clear lung bases. Noncontrast appearance of the liver, spleen, gallbladder, pancreas, adrenals is within normal limits. Punctate nonobstructing right renal stone. Suggestion of small angiomyolipoma in the right kidney. No hydronephrosis. No retroperitoneal or pelvic adenopathy. No bowel obstruction. Normal appendix. Bladder show no radiopaque stones. Uterus is present. Bilateral ovaries are visualized and is within normal limits. No suspicious bony lesion. Impression: Limited evaluate of solid abdominal organs due to lack of IV contrast. 1. Nonobstructing punctate right renal stone with small angiomyolipoma. No evidence of obstructive uropathy. 2. Normal appendix. PQRS Compliance Statement: One or more of the following individualized dose reduction techniques were utilized for this examination: 1. Automated exposure control 2. Adjustment of the mA and/or kV according to patient size 3. Use of iterative reconstruction technique
== END | disposition home or self-care (01) ==
LOC: CT 14:03
PROVIDERS: ATTEND Family Medicine
DX: N20.0 Calculus of kidney (principal); Z87.442 Personal history of urinary calculi
CPT/HCPCS: 74176

== ENCOUNTER 2021-07-06 17:18 | Emergency (ER) | payer BC, OTHER ==
[~2021-07-06] VITALS: Ht 162.6 cm; Wt 72.7 kg
[~2021-07-06 17:18] MED LIST changes: -ASCO500T2 PO; +ASCO500T4 PO; +HYDR-1179 PO; +ONDA8TAB12 PO
[2021-07-06 17:40] VITALS: BP 142/79
--- NOTE | 2021-07-06 17:52 | PHYS DOC ---
Past History Past Medical History: Hypertension, Hypothyroid, Kidney Stones, Migraines, Other Additional Past Medical Histor: interstitial cystitis, herpes, chronic hives Past Surgical History: Other Additional Past Surgical Histo: lithrotripsy, bladder wash out, D&C Alcohol Use: Rarely Drug Use: None General Adult EDM: Chief Complaint: KNEE INJURY HPI: HPI: Patient is a 56-year-old female who presents to the emergency department for left anterior knee pain after falling on her knee while rollerskating last night at 2030. Patient reports swelling and abrasion to the site. She states that she is able to bear weight and ambulate following which she cannot fully bear weight. She reports increased pain with flexion of the knee, denies any decreased sensation. Denies hitting head. Review of Systems: Review of Systems: Musculoskeletal: see HPI Integument: see HPI Neurologic: see HPI Allergies: Allergies: Allergies Coded Allergies Type Severity Reaction Last Updated Verified shellfish derived Allergy Severe Anaphylaxis 05/08/17 Yes Penicillins Allergy Intermediate 05/08/17 Yes aspirin Allergy Intermediate 05/08/17 Yes phenazopyridine Allergy Mild Unknown 05/08/17 Yes Physical Exam: PE: Constitutional: Well developed, well nourished, no acute distress, non-toxic appearance. [] HENT: Normocephalic, atraumatic, bilateral external ears normal, oropharynx moist, no oral exudates, nose normal. [] Eyes: PERRL, EOMI, conjunctiva normal, no discharge. [] Neck: Normal range of motion, no stridor Cardiovascular: Normal peripheral perfusion Lungs & Thorax: Normal work of breathing, no tachypnea Abdomen: Soft and flat Skin: Warm, dry, no erythema, no rash. [] Back: No tenderness, normal range of motion Extremities: No tenderness, no cyanosis, no clubbing, ROM intact, no edema. [] Left knee: Abrasion noted to anterior aspect of left knee with mild swelling, no crepitus, decreased flexion due to pain, neuro intact Neurologic: Alert and oriented X 3, normal motor function, normal sensory function, no focal deficits noted. [] Psychologic: Affect normal, judgement normal, mood normal. [] Current Patient Data: Vital Signs: Vital Signs Date Time Temp Pulse Resp B/P (MAP) Pulse Ox O2 Delivery O2 Flow Rate FiO2 07/06/21 17:40 98.5 88 16 142/79 (100) 98 Room Air EKG: EKG: [] Radiology/Procedures: Radiology/Procedures: []REASON: fall on knee while rollerskating PROCEDURE: KNEE LEFT 3V EXAM: XR KNEE _3 VIEWS_LT 07/06/2021 5:40 PM CLINICAL INDICATION: Fell on knee while rollerskating COMPARISON: None TECHNIQUE: AP, oblique, and lateral views of the left knee FINDINGS: There is a transverse fracture through the inferior patellar pole with minimal displacement. No other fracture or malalignment. Joint spaces are maintained. Small joint effusion and suprapatellar soft tissue swelling. IMPRESSION: Transverse patellar fracture. Electronically signed by: Nadine Najera MD (07/06/2021 6:55 PM) [id number] DICTATED AND SIGNED BY: NADINE NAJERA MD DATE: 07/06/211852 CC: LIZ DICKERSON MD; RUSSEL NASSAR APRN ~ Heart Score: C/O Chest Pain: N/A Risk Factors: Risk Factors: DM, Current or recent (<one month) smoker, HTN, HLP, family history of CAD, obesity. Risk Scores: Score 0 - 3: 2.5% MACE over next 6 weeks - Discharge Home Score 4 - 6: 20.3% MACE over next 6 weeks - Admit for Clinical Observation Score 7 - 10: 72.7% MACE over next 6 weeks - Early Invasive Strategies Course & Med Decision Making: Course & Med Decision Making Pertinent Labs and Imaging studies reviewed. (See chart for details) [] Patient resents to the emergency department for left anterior knee pain after falling on it while rollerblading last night at 2029. X-ray performed in the ER which showed a transverse patella fracture. Consulted supervising physician. Patient is able to perform straight leg raise. Patient's neurovascularly intact. Patient's knee placed in a knee immobilizer and she was given crutches and crutch training. She was given orthopedic referral information. Advised not to bear weight. Discharged with pain medication. I discussed with patient all findings and diagnostic testing as well as the need to follow-up with PCP for further evaluation and treatment or return to the ER if any new or worsening symptoms. Strict return precautions were also discussed at length. Patient voiced understanding and agreement with the plan. Patient is hemodynamically stable at the time of disposition. Dragon Disclaimer: Dragon Disclaimer: This electronic medical record was generated, in whole or in part, using a voice recognition dictation system. Departure Departure: Impression: Primary Impression: Patella fracture Qualified Codes: S82.032A - Displaced transverse fracture of left patella, initial encounter for closed fracture Disposition: HOME / SELF CARE / HOMELESS Condition: GOOD Referrals: LIZ DICKERSON MD (PCP) YARI MENDENHALL Jr. DO Patient Instructions: Patellar Fracture, Adult Additional Instructions: You are seen in the emergency department today for knee injury. You are noted to have a patella fracture. Your knee was placed in a knee immobilizer to help with support and comfort. Please use the crutches at home, do not bear weight. You are being discharged home with pain medication. This medication is hydrocodone and Tylenol in combination tablet. This medication may cause sedation so do not take any need to be alert, driving a vehicle or with alcohol. You will need to follow-up with an orthopedic doctor. Please contact orthopedic doctor attached to this discharge paperwork tomorrow to set up a follow-up appointment. Return to the emergency department if you develop worsening pain, any new injuries, loss of sensation in your extremity, loss of range of motion. Scripts Hydrocodone Bit/Acetaminophen (HYDROCODONE-APAP 5-325 ) 1 Each Tablet 1 TAB PO PRN Q6HRS PRN for PAIN for 2 Days, #8 TAB 0 Refills Prov: RUSSEL NASSAR APRN 07/06/21 RUSSEL NASSAR [employer] July 06, 2021 17:52
--- NOTE | 2021-07-06 18:57 | RAD ---
EXAM: XR KNEE _3 VIEWS_LT 07/06/2021 5:40 PM CLINICAL INDICATION: Fell on knee while rollerskating COMPARISON: None TECHNIQUE: AP, oblique, and lateral views of the left knee FINDINGS: There is a transverse fracture through the inferior patellar pole with minimal displacemen t. No other fracture or malalignment. Joint spaces are maintained. Small joint effusion and suprapate llar soft tissue swelling. IMPRESSION: Transverse patellar fracture. Electronically signed by: Nadine Najera MD (07/06/2021 6:55 PM) [id number]
[2021-07-06] MEDS ORDERED: HYDR-2155 PO (19:15)
== END 2021-07-06 19:41 | disposition home or self-care (01) ==
LOC: ER 17:18
DX: S82.032A Displaced transverse fracture of left patella, initial encounter for closed fracture (principal); I10 Essential (primary) hypertension; E03.9 Hypothyroidism, unspecified; G43.909 Migraine, unspecified, not intractable, without status migrainosus; Z87.442 Personal history of urinary calculi; Z88.0 Allergy status to penicillin; Z88.6 Allergy status to analgesic agent; Z91.013 Allergy to seafood; Z88.8 Allergy status to other drugs, medicaments and biological substances; W18.39XA Other fall on same level, initial encounter; Y93.51 Activity, roller skating (inline) and skateboarding; Y92.89 Other specified places as the place of occurrence of the external cause; Y99.8 Other external cause status
CPT/HCPCS: 29505; 73562; 99283